=== PATIENT | male | born 1990 | race Caucasian/White ===

== ENCOUNTER 2022-02-09 16:27 | Emergency (ER) | payer OTHER ==
[~2022-02-09] VITALS: Ht 172.7 cm; Wt 72.6 kg
--- OUTSIDE RECORDS SUMMARY | 2022-02-09 16:32 | XMS ---
PreManage Notification: MELINDA BENDER Security Hvac Residential Service Technician Events No recent Security Events currently on file CRITERIA MET - [facility] - Has Care Guidelines - 6 ED Visits in 6 Months CARE PROVIDERS THIEN MARIN Water Superintendent/Resizer Operator Current PHONE: [phone] ABNER ALCANTAR Physician Supervisory Geographer Current PHONE: [phone] GA FELDER Water Superintendent/Resizer Operator 01/11/2020-Current PHONE: [phone] Guidelines Source: [facility] Guidelines Date: 09/24/2021 Care Coordination: Patient appears to be living in the [facility] based on his recorded addresses and ED visits. Patient is currently listed as having [facility] PAINTINGS RESTORER. Please assist the patient in updating his address with [facility] so that he can access services in the area in which he lives. \T\nbsp;Report\T\nbsp;changes\T\nbsp; You can report changes in one of the following ways: -Use your ONE account\T\nbsp;to report changes online. -Visit\T\nbsp;any\T\nbsp;ODHS\T\nbsp;Aging and People with Disabilities, [facility] Agency on Aging or Self-Sufficiency Programs Office\T\nbsp;in [place].\T\nbsp; -Contact a local\T\nbsp;OHP-certified\T\nbsp;community partner. -Call [phone] and report changes over the phone. EHoldenD. VISIT COUNT (12 MO.) 1 [facility]. Vincent HoldenHolden 1 [facility] [address] Anthony Holden TOTAL 6 NOTE: Visits indicate total known visits. ED/UCC VISIT TRACKING (12 MO.) 02/09/2022 16:27 NEHA [place] TYPE: Emergency 09/23/2021 10:01 [facility] [place] [facility]: [facility] DIAGNOSES: 30577. varinder 62106. Fall on same level, unspecified, initial encounter 09/23/2021 00:41 [facility] [place] TYPE: Emergency DIAGNOSES: 19552. ALOC 09/07/2021 00:30 [facility] [place] BHARDWAJ [place] TYPE: Emergency 09/06/2021 19:05 [facility] TYPE: Emergency DIAGNOSES: 71675. ETOH 77840. Alcohol use, unspecified with intoxication, uncomplicated 09/06/2021 11:46 [facility] ALEXX Daily TYPE: Emergency DIAGNOSES: - Other psychoactive substance use, unspecified with intoxication, uncomplicated INPATIENT VISIT TRACKING (12 MO.) No inpatient visits to display in this time frame [email or web address]
[2022-02-09] MEDS ORDERED: DICLOFENAC POTA50 MG PO (16:49)
[2022-02-09] MEDS ORDERED: FLUOXETINE HCL20 MG PO (16:49)
[2022-02-09] MEDS ORDERED: BUSPIRONE HCL10 MG PO (16:49)
[2022-02-09] MEDS ORDERED: TRAZODONE HCL50 MG PO (16:50)
== END 2022-02-09 18:58 | disposition home or self-care (01) ==
LOC: ED 16:27
DX: F10.129 Alcohol abuse with intoxication, unspecified (principal)
CPT/HCPCS: 99284

== ENCOUNTER 2022-02-16 13:09 | Inpatient (IN) | payer OTHER ==
[~2022-02-16] VITALS: Ht 172.7 cm; Wt 60.0 kg
[~2022-02-16 13:09] MED LIST: BUSPIRONE HCL10 MG PO; DICLOFENAC POTA50 MG PO; FLUOXETINE HCL20 MG PO; TRAZODONE HCL50 MG PO
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
--- NOTE | 2022-02-16 19:44 | NUR ---
REPORT TO NEXT SHIFT. NO CHANGES WITH PATIENT. REMAINS ON VENT, TV-500,FIO2-25,PEEP-5, RR-18.PROPOFOL GTT 60MCG/KG/MIN. IVF 125.
--- NOTE | 2022-02-16 19:45 | NUR ---
PT ASSESSED, FOUND INTUBATED WITH A RASS OF -3. PT IS SYNCHRONOUS WITH VENTILATOR AND APPEARS TO BE OXYGENATING WITHOUT A PROBLEM. PT MOVES ALL FOUR EXTREMITIES WITH PURPOSE, HOWEVER, DOES IS NOT FOLLOWING SIMPLE COMMANDS AT THIS TIME. V/S OBTAINED, AND SAFETY CHECK PERFORMED.
--- NOTE | 2022-02-17 02:39 | NUR ---
CALLED DR. OLIVO REGARDING ELEVATED CPOT AND NEED FOR PAIN MANAGEMENT. ADVISED BY PROVIDER TO ADMINISTER PRN VERSED. INFORMED PROVIDER OF BENZODIAZEPINE ASSOCIATED DELIERIUMS, HOWEVER, DR. OLIVO CONTINUED TO REQUEST VERSED. PROPOFOL RATE INCREASED. NO FURTHER ACTIONS NEEDED AT THIS TIME.
--- NOTE | 2022-02-17 07:30 | NUR ---
REPORT RECIEVED. ON PROPOFOL DRIP AT 90 MCG/KG/MIN. HOB ELEVATED, VENT SETTINGS, TV-500,PEEP-5, RR-18, FIO2-21. SIZE 7.5 ETT TAPED 25 AT TEETH, IVF PATENT,MORA CATH PATENT.
--- NOTE | 2022-02-17 07:41 | NUR ---
PT REMAINS INTUBATED, SEDATED WITH NO CHANGES IN VENTILATION OR OXYGENATION THROUGHOUT THE NIGHT. PT MOVES ALL FOUR EXTREMITIES AND FOLLOWS SIMPLE COMMANDS INTERMITANTLY. PT IS IN A NSR TO ST, NORMORTENSIVE AND A-FEBRILE THROUGHOUT THE NIGHT. PROPOFOL GTT INCREASED TO 90 AND A TOTAL OF 4 MG VERSED ADMINISTERED FOR SEDATION. PT WITH ADEQUATE UO. LAST BM WAS SPORTS BETTING MANAGER. LABS: NONE OBTAINED.
--- NOTE | 2022-02-17 09:45 | NUR ---
DR. OLIVO HERE TO SEE PATIENT AND DICUSS POG. PROPOFOL DECREASED TO 50MCG/KG/MIN. PLAN TO WAKE PATIENT AN EXTUBATE. SHERYL IS ABLE TO OPEN EYES AND KNOD HEAD.
--- NOTE | 2022-02-17 10:00 | NUR ---
PROPOFOL DC'D. PATIENT IS AWAKE. TRYING TO KEEP PATIENT CALM. IS FOLLOWING DIRECTION.
--- NOTE | 2022-02-17 10:15 | NUR ---
ORDERS RECIEVED TO EXTUBATE.
--- NOTE | 2022-02-17 10:17 | NUR ---
EXTABATED TO RA. MORA CATH DC'D. WRIST RESTRAINTS DC'D. PATIENT IS FOLLOWING COMMANDS AND IS COOPERATIVE.
--- NOTE | 2022-02-17 10:25 | NUR ---
TAKING IN LARGE AMOUNTSF WATER, NO PROBLEMS WITH SWALLOWING.
--- NOTE | 2022-02-17 11:00 | NUR ---
TORDOL GIVEN FOR C/O HEADACHE AND OVERALL COMFORT.
--- NOTE | 2022-02-17 12:00 | NUR ---
UP TO BR TO VOID. STABLE ON FEET. CALM AND COOPERATIVE. DENIES PAINFUL URINATION. SITTING UP IN BED TO TAKE LUNCH. DENIES PROBLEMS SWALLOWING. C/O PAIN IN UPPER LEFT ANTERIOR CHEST. PATIENT IS AWARE OF LEFT SIDE RIB FRACTURE.
--- NOTE | 2022-02-17 12:17 | NUR ---
TOOK LUNCH WELL. CONTINUES TO C/O HEADACHE. HAS BEEN VERY COOPERATIVE. C/O LEFT UPPER CHEST DISCOMFORT, GOING TO BACK. DENIES INCREASED SHORTNESS OF BREATH. IS STABLE ON FEET.
--- NOTE | 2022-02-17 12:20 | NUR ---
AMBULATING IN HALLWAY, DOING WELL WITH AMBULATION.
--- NOTE | 2022-02-17 12:40 | NUR ---
DISCHARGE ORDERS RECIEVED.
[2022-02-17] MEDS ORDERED: DICLOFENAC POTA50 MG PO (12:58)
[2022-02-17] MEDS ORDERED: MELATONIN10 M2 PO (13:09)
--- NOTE | 2022-02-17 13:10 | NUR ---
MED REC COMPLETE
== END 2022-02-17 13:35 | disposition home or self-care (01) | DRG 917 ==
LOC: ED 13:09 → CCU 16:16
PROVIDERS: ADMIT Internal Medicine; ATTEND Internal Medicine
PROC: 0BH18EZ Insertion of Endotracheal Airway into Trachea, Via Natural or Artificial Opening Endoscopic (ICD-10-PCS; principal; 2022-02-16)
PROC: 5A1935Z Respiratory Ventilation, Less than 24 Consecutive Hours (ICD-10-PCS; 2022-02-16)
DX: T51.0X1A Toxic effect of ethanol, accidental (unintentional), initial encounter (principal); J96.01 Acute respiratory failure with hypoxia; F10.121 Alcohol abuse with intoxication delirium; S22.32XA Fracture of one rib, left side, initial encounter for closed fracture; E87.6 Hypokalemia; Z20.822 Contact with and (suspected) exposure to COVID-19; S01.112A Laceration without foreign body of left eyelid and periocular area, initial encounter; F39 Unspecified mood [affective] disorder; Z79.891 Long term (current) use of opiate analgesic; Y90.8 Blood alcohol level of 240 mg/100 ml or more; V09.20XA Pedestrian injured in traffic accident involving unspecified motor vehicles, initial encounter; K31.89 Other diseases of stomach and duodenum; Y84.8 Other medical procedures as the cause of abnormal reaction of the patient, or of later complication, without mention of misadventure at the time of the procedure
CPT/HCPCS: 31500; 36415; 70450; 71045; 71260; 72125; 74177; 80053; 81001; 82803; 83605; 83735; 85025; 86850; 86900; 86901; 87502; 94002; 94003; C9113; C9803; G0480; J1650; J1885; J2250; J2704; J3010; J3480; J7120; J7121; Q9967; U0003

== ENCOUNTER 2022-02-20 15:49 | Emergency (ER) | payer OTHER ==
[~2022-02-20] VITALS: Ht 172.7 cm; Wt 59.9 kg
[~2022-02-20 15:49] MED LIST changes: +MELATONIN10 M2 PO
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
== END 2022-02-20 21:46 | disposition home or self-care (01) ==
LOC: ED 15:49
DX: R45.851 Suicidal ideations (principal); F10.129 Alcohol abuse with intoxication, unspecified; Y90.8 Blood alcohol level of 240 mg/100 ml or more
CPT/HCPCS: 36415; 80053; 81003; 84443; 85025; 99285; G0480

== ENCOUNTER 2022-03-27 15:05 | Emergency (ER) | payer OTHER ==
[~2022-03-27] VITALS: Ht 172.7 cm; Wt 59.6 kg
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
--- NOTE | 2022-03-29 17:41 | EKG ---
[facility] [address] [facility] [place] [address] Signed Normal sinus rhythm Left axis deviation Abnormal ECG No previous ECGs available Confirmed by DUANE OLIVO MD ([id number]) on 03/29/2022 5:40:43 PM Electronically Signed By: DUANE OLIVO MD 03/29/221740 PATIENT NAME: MELINDA BENDER NIDHI Electrocardiogram DATE OF : 89 PHYSICIAN: DUANE OLIVO MD REPORT #: [id number] REPORT IS CONFIDENTIAL AND NOT TO BE RELEASED WITHOUT AUTHORIZATION
== END 2022-03-27 17:31 | disposition home or self-care (01) ==
LOC: ED 15:05
DX: F10.129 Alcohol abuse with intoxication, unspecified (principal); Y90.8 Blood alcohol level of 240 mg/100 ml or more
CPT/HCPCS: 36415; 80053; 83690; 85025; 93005; 93010; 99285-25; G0480

== ENCOUNTER 2022-04-05 10:19 | Emergency (ER) | payer OTHER ==
[~2022-04-05] VITALS: Ht 172.7 cm; Wt 63.5 kg
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
[2022-04-05] MEDS ORDERED: ONDANSETRON ODT8 MG PO (12:17)
[2022-04-05] MEDS ORDERED: CHLORDIAZEPOXID25 MG PO (12:17)
== END 2022-04-05 12:56 | disposition home or self-care (01) ==
LOC: ED 10:19
DX: F10.239 Alcohol dependence with withdrawal, unspecified (principal)
CPT/HCPCS: 36415; 80053; 83690; 85025; 96374; 96375; 99285-25; J2060; J2405; J7030

== ENCOUNTER 2022-05-12 12:20 | Emergency (ER) | payer OTHER ==
[~2022-05-12] VITALS: Ht 172.7 cm; Wt 63.5 kg
[~2022-05-12 12:20] MED LIST changes: +CHLORDIAZEPOXID25 MG PO; +ONDANSETRON ODT8 MG PO
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
[2022-05-12] MEDS ORDERED: PENICILLIN V P500 MG PO (14:06)
== END 2022-05-12 14:17 | disposition home or self-care (01) ==
LOC: ED 12:20
DX: J02.9 Acute pharyngitis, unspecified (principal)
CPT/HCPCS: 87880; 99283; J8540

== ENCOUNTER → 2022-06-16 | Emergency (ER) | payer OTHER ==
[~2022-06-16] VITALS: Ht 172.7 cm; Wt 58.2 kg
[~2022-06-16] MED LIST changes: +PENICILLIN V P500 MG PO
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
[2022-06-17 06:16] VITALS: BP 128/78
--- NOTE | 2022-06-17 15:25 | EKG ---
[facility] [address] [facility] [place], [place] [address] Signed Normal sinus rhythm Normal ECG No previous ECGs available Confirmed by DUANE OLIVO MD ([id number]) on 06/17/2022 3:24:55 PM Electronically Signed By: DUANE OLIVO MD 06/17/22 1525 PATIENT NAME: MELINDA BENDER NIDHI Electrocardiogram DATE OF : 89 PHYSICIAN: DUANE OLIVO MD REPORT #: [id number] REPORT IS CONFIDENTIAL AND NOT TO BE RELEASED WITHOUT AUTHORIZATION
== END ==
LOC: ED 19:27
DX: F10.229 Alcohol dependence with intoxication, unspecified (principal)
CPT/HCPCS: 36415; 80053; 81001; 85025; 93005; 93010; G0480; J2405; J3411; J7030; J7121

== ENCOUNTER → 2022-06-27 | Emergency (ER) | payer OTHER ==
[~2022-06-27] VITALS: Ht 172.7 cm; Wt 58.1 kg
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
[2022-06-28 03:00] VITALS: BP 119/85
== END ==
LOC: ED 22:56
DX: F10.129 Alcohol abuse with intoxication, unspecified (principal); Y90.8 Blood alcohol level of 240 mg/100 ml or more
CPT/HCPCS: 36415; 80053; 85025; 99284; G0480

== ENCOUNTER 2022-07-07 09:27 | Emergency (ER) | payer OTHER ==
[~2022-07-07] VITALS: Ht 170.2 cm; Wt 57.6 kg
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
[2022-07-07] MEDS ORDERED: CHLORDIAZEPOXID25 MG PO (10:58)
[2022-07-07 11:13] VITALS: BP 139/82
== END 2022-07-07 11:15 | disposition home or self-care (01) ==
LOC: ED 09:27
DX: F10.139 Alcohol abuse with withdrawal, unspecified (principal); Z79.899 Other long term (current) drug therapy
CPT/HCPCS: 36415; 80053; 81001; 83690; 85025; 96365; 96375; 99285-25; G0480; J2060; J3411; J7030

== ENCOUNTER 2022-07-18 15:11 | Emergency (ER) | payer OTHER ==
[~2022-07-18] VITALS: Ht 170.2 cm; Wt 57.6 kg
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
[2022-07-18] MEDS ORDERED: NAPROSYN500 MG PO (15:59)
[2022-07-18 16:28] VITALS: BP 125/81
== END 2022-07-18 16:25 | disposition home or self-care (01) ==
LOC: ED 15:11
DX: S73.102A Unspecified sprain of left hip, initial encounter (principal); S73.101A Unspecified sprain of right hip, initial encounter; X50.9XXA Other and unspecified overexertion or strenuous movements or postures, initial encounter
CPT/HCPCS: 73502; 99283-25

== ENCOUNTER 2022-09-12 14:22 | Emergency (ER) | payer OTHER ==
[~2022-09-12] VITALS: Ht 170.2 cm; Wt 58.0 kg
[~2022-09-12 14:22] MED LIST changes: +NAPROSYN500 MG PO
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
[2022-09-12] MEDS ORDERED: ONDANSETRON HCL4 MG PO (15:59)
[2022-09-12] MEDS ORDERED: ATIVAN1 MG PO (15:59)
[2022-09-12 17:34] VITALS: BP 120/80
== END 2022-09-12 17:34 | disposition home or self-care (01) ==
LOC: ED 14:22
DX: F10.20 Alcohol dependence, uncomplicated (principal); E86.0 Dehydration; F17.210 Nicotine dependence, cigarettes, uncomplicated; Y90.8 Blood alcohol level of 240 mg/100 ml or more
CPT/HCPCS: 36415; 70450; 71045; 80053; 81001; 83690; 85025; 96365; 96366; 96375; 99284 25; C9113; G0480; J2405; J2560; J3411; J7030

== ENCOUNTER 2022-11-29 18:40 | Emergency (ER) | payer OTHER ==
[~2022-11-29] VITALS: Ht 170.2 cm; Wt 54.4 kg
[~2022-11-29 18:40] MED LIST changes: +ATIVAN1 MG PO; +CEPHALEXIN500 M1 PO; +IBU600 MG PO; +ONDANSETRON HCL4 MG PO
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
[2022-11-29] MEDS ORDERED: TRAZODONE HCL50 MG PO (21:25)
[2022-11-29] MEDS ORDERED: PENICILLIN V P500 MG PO (23:14)
[2022-11-29 23:26] VITALS: BP 128/84
== END 2022-11-29 23:26 | disposition home or self-care (01) ==
LOC: ED 18:40
DX: S01.511A Laceration without foreign body of lip, initial encounter (principal); Y04.2XXA Assault by strike against or bumped into by another person, initial encounter
CPT/HCPCS: 40650; 99283-25

== ENCOUNTER 2022-12-20 14:49 | Emergency (ER) | payer OTHER ==
[~2022-12-20] VITALS: Ht 170.2 cm; Wt 61.4 kg
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
[2022-12-20] MEDS ORDERED: CHLORDIAZEPOXID25 MG PO (16:36)
[2022-12-20] MEDS ORDERED: ONDANSETRON ODT8 MG PO (16:36)
[2022-12-20 16:45] VITALS: BP 125/87
[2022-12-21] MEDS ORDERED: ONDANSETRON ODT8 MG PO (22:31)
== END 2022-12-20 16:45 | disposition home or self-care (01) ==
LOC: ED 14:49
DX: F10.129 Alcohol abuse with intoxication, unspecified (principal)
CPT/HCPCS: 99284

== ENCOUNTER 2023-02-06 04:06 | Emergency (ER) | payer OTHER ==
[~2023-02-06] VITALS: Ht 170.2 cm; Wt 60.8 kg
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
[2023-02-06 04:20] VITALS: BP 142/106
== END 2023-02-06 04:20 | disposition home or self-care (01) ==
LOC: ED 04:06
DX: F10.129 Alcohol abuse with intoxication, unspecified (principal)
CPT/HCPCS: 99284

== ENCOUNTER 2023-02-10 15:57 | Emergency (ER) | payer OTHER ==
[~2023-02-10] VITALS: Ht 170.2 cm; Wt 60.1 kg
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
[2023-02-10 18:43] VITALS: BP 116/76
== END 2023-02-10 18:43 | disposition home or self-care (01) ==
LOC: ED 15:57
DX: F10.129 Alcohol abuse with intoxication, unspecified (principal)
CPT/HCPCS: 99283

== ENCOUNTER 2023-04-08 14:37 | Emergency (ER) | payer OTHER ==
[~2023-04-08] VITALS: Ht 170.2 cm; Wt 60.1 kg
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
[2023-04-08 15:13] LABS: BASOPHILS 0.4 % (0-2); EOSINOPHILS 0.4 % (0-6); HEMATOCRIT 48.1 % (35.0-50.0); HEMOGLOBIN 16.2 g/dL (12.0-18.0); LYMPHOCYTES 44.8 % (24-44); MCH 31.6 (27-36); MCHC 33.6 g/dl (30-36); MCV 93.9 fl (81-99); MONOCYTES 7.3 % (0-12); NEUTROPHILS 47.1 % (39-80); PLATELET COUNT 418 K/uL (140-440); RBC 5.13 M/ul (4.3-5.7); RDW 13.3 (10.5-15.0)
[2023-04-08 15:29] LABS: AMPHETAMINES, URINE NEGATIVE (NEGATIVE); BARBITURATES, URINE NEGATIVE (NEGATIVE); BENZODIAZEPINE, URINE NEGATIVE (NEGATIVE); BUPRENORPHINE, URINE NEGATIVE (NEGATIVE); CANNABINOID, URINE NEGATIVE (NEGATIVE); COCAINE, URINE NEGATIVE (NEGATIVE); ECSTASY, URINE NEGATIVE (NEGATIVE); FENTANYL, URINE NEGATIVE (NEGATIVE); METHADONE, URINE NEGATIVE (NEGATIVE); OPIATES, URINE NEGATIVE (NEGATIVE); OXYCODONE, URINE NEGATIVE (NEGATIVE); PHENCYCLIDINE, URINE NEGATIVE (NEGATIVE)
[2023-04-08 15:33] LABS: ACETAMINOPHEN 0 ug/mL (10-30); ALBUMIN 4.5 g/dL (3.4-5.0); ALBUMIN/GLOBULIN RATIO 1.07 (1.1-2.4); ALCOHOL, MEDICAL 322 ng/dL (<3); ALKALINE PHOSPHATASE 74 U/L (46-116); ALT (SGPT) 36 U/L (14-59); ANION GAP 16.9 (7-21); AST (SGOT) 31 U/L (15-37); BILIRUBIN, TOTAL 0.3 ng/dL (0.2-1.0); CARBON DIOXIDE 28 mmol/L (21-32); CHLORIDE 103 mmol/L (98-107); CREATININE, SERUM 0.75 mg/dL (0.70-1.30); GLOMERULAR FILTRATION RATE,EST 124 mL/min (>60); POTASSIUM 3.9 mmol/L (3.5-5.1); PROTEIN, TOTAL 8.7 g/dL (6.4-8.2); SALICYLATE 1.4 mg/dL (2.8-20.0); TSH, 3RD GENERATION 0.651 uIU/mL (0.358-3.740); UREA NITROGEN 9 mg/dL (7-18)
[2023-04-08 20:05] VITALS: BP 151/100
== END 2023-04-08 20:05 | disposition home or self-care (01) ==
LOC: ED 14:37
PROVIDERS: Emergency Medicine
DX: F10.129 Alcohol abuse with intoxication, unspecified (principal); Y90.8 Blood alcohol level of 240 mg/100 ml or more
CPT/HCPCS: 36415; 80053; 80307; 84443; 85025; 99284; G0480

== ENCOUNTER 2024-08-08 10:11 | Emergency (ER) | payer OTHER ==
[~2024-08-08] VITALS: Ht 170.2 cm; Wt 61.5 kg
[2024-08-08] MEDS ORDERED: GABAPENTIN300 MG PO (10:43)
[2024-08-08 12:55] LABS: N. GONORRRHOEAE BY PCR NOT DETECTED (NOT DETECT)
[2024-08-08 13:16] VITALS: BP 143/93
[2024-08-10 21:12] LABS: RAPID PLASMA REAGIN (RPR) Non Reactive (Non Reactive)
[2024-08-11 08:53] LABS: HIV 1,2 COMBO ANTIGEN/ANTIBODY Negative (Negative)
== END 2024-08-08 13:16 | disposition home or self-care (01) ==
LOC: ED 10:11
PROVIDERS: Emergency Medicine
DX: K13.79 Other lesions of oral mucosa (principal); Z20.2 Contact with and (suspected) exposure to infections with a predominantly sexual mode of transmission; Z79.899 Other long term (current) drug therapy
CPT/HCPCS: 36415; 87591; 99283

== ENCOUNTER 2024-09-01 16:10 | Emergency (ER) | payer OTHER ==
[~2024-09-01] VITALS: Ht 170.2 cm; Wt 59.4 kg
[~2024-09-01 16:10] MED LIST changes: +GABAPENTIN300 MG PO
--- OUTSIDE RECORDS SUMMARY | 2024-09-01 16:17 | XMS ---
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 Physician Quality Control Tester Current PHONE: Unknown Care Guidelines exist for the following facilities: ANAMIKA ( 09/24/2021 ) [place] VISIT COUNT (12 MO.) [address] [facility] TOTAL 2 NOTE: Visits indicate total known visits. ED/UCC VISIT TRACKING (12 MO.) 09/01/2024 16:11 [facility] [place] TYPE: Emergency COMPLAINT: - SHAKING 08/08/2024 10:12 [facility] [place] TYPE: Emergency COMPLAINT: - MOUTH PAIN DIAGNOSES: - Contact with and (suspected) exposure to infections with a predominantly sexual mode of transmission - Other lesions of oral mucosa - Other page technician (current) drug therapy INPATIENT VISIT TRACKING (12 MO.) No inpatient visits to display in this time frame [email or web address]
[2024-09-01 16:39] VITALS: BP 139/101
[2024-09-01] MEDS ORDERED: CHLORDIAZEPOXID25 MG PO (16:39)
== END 2024-09-01 16:45 | disposition home or self-care (01) ==
LOC: ED 16:10
DX: F10.90 Alcohol use, unspecified, uncomplicated (principal); Z79.899 Other long term (current) drug therapy
CPT/HCPCS: 99283

== ENCOUNTER 2024-11-15 14:00 | Emergency (ER) | payer OTHER ==
[~2024-11-15] VITALS: Ht 170.2 cm; Wt 61.8 kg
[2024-11-15] MEDS ORDERED: SODIUM CHLORIDE 0.9% 1,000 ML IV PRN (14:30)
[2024-11-15 15:50] VITALS: BP 139/99
== END 2024-11-15 15:50 | disposition home or self-care (01) ==
LOC: ED 14:00
DX: F10.929 Alcohol use, unspecified with intoxication, unspecified (principal); Z79.899 Other long term (current) drug therapy
CPT/HCPCS: 96374; 96375; 99284-25; J1953; J2405; J7030